=== PATIENT | female | born 1990 | race Caucasian/White ===

== ENCOUNTER 2017-09-17 14:04 | Inpatient (IN) | payer BC ==
[2017-09-17] VITALS (26 sets, daily range): BP systolic 92–139; BP diastolic 42–84; PULSE 68–106; TEMP 98.6–99.5
[~2017-09-17] VITALS: Ht 165.1 cm; Wt 70.0 kg
[2017-09-17] MEDS ORDERED: PRENATAL FORMU1 EAC3 PO (14:50)
[2017-09-17] MEDS ORDERED: ZYRTEC 10MG10 MG PO (14:50)
[2017-09-17] MEDS ORDERED: NEXIUM 20MG20 MG PO (14:52)
[2017-09-17] MEDS ORDERED: FERROUS SU325 MG/TAB PO (14:52)
[2017-09-17 15:33] LABS: BASO % 0.2 % (0.0-2.0); EOS % 0.1 % (0-4.0); GRAN # 13.9 (1.4-6.5); GRAN % 87.2 % (42.2-75.2); HEMATOCRIT 38.6 % (37.0-47.0); HEMOGLOBIN 13.2 g/dl (12.5-16.0); LYMPH # 1.2 (1.2-3.4); LYMPH % 7.6 % (20.0-51.0); MEAN CELL VOLUME 85 fl (80.0-100.0); MEAN CORPUSCULAR HEMOGLOBIN 29 pg (27.0-31.0); MEAN CORPUSCULAR HGB CONC 34 g/dl (33.0-37.0); MEAN PLATELET VOLUME 11.7 fl (7.4-10.4); MONO # 0.7 (0.1-0.6); MONO % 4.4 % (1.7-9.3); PLATELET COUNT 162 K/mm3 (130-400); RED BLOOD COUNT 4.56 M/mm3 (4.10-5.30); REDCELL DISTRIBUTION WIDTH-CV 20.8 % (11.5-14.5)
[2017-09-18] VITALS (7 sets, daily range): BP systolic 103–120; BP diastolic 50–70; PULSE 70–89; TEMP 97.7–98.9
[2017-09-19 09:09] VITALS: BP 114/69; PULSE 101
[2017-09-19] MEDS ORDERED: PERCOCET 325 MG1 TA2 PO (10:35)
[2017-09-19] MEDS ORDERED: MOTRIN 800800 MG/TAB PO (10:35)
== END 2017-09-19 16:20 | disposition home or self-care (01) | DRG 775 ==
LOC: LDRO 14:04 → LDR 15:10 → OB 23:19
PROVIDERS: Obstetrics & Gynecology
PROC: 10D07Z6 Extraction of Products of Conception, Vacuum, Via Natural or Artificial Opening (ICD-10-PCS; principal; 2017-09-17)
PROC: 0TQDXZZ Repair Urethra, External Approach (ICD-10-PCS; 2017-09-17)
PROC: 10E0XZZ Delivery of Products of Conception, External Approach (ICD-10-PCS; 2017-09-17)
DX: O60.14X1 Preterm labor third trimester with preterm delivery third trimester, fetus 1 (principal); O60.14X2 Preterm labor third trimester with preterm delivery third trimester, fetus 2; O76 Abnormality in fetal heart rate and rhythm complicating labor and delivery; O36.5932 Maternal care for other known or suspected poor fetal growth, third trimester, fetus 2; O30.043 Twin pregnancy, dichorionic/diamniotic, third trimester; Z3A.36 36 weeks gestation of pregnancy; Z37.2 Twins, both liveborn; O71.82 Other specified trauma to perineum and vulva
CPT/HCPCS: J2210; J2405; J2590; J2795; J7120

== ENCOUNTER → 2017-10-02 | Outpatient (CLI) | payer BC ==
[~2017-10-02] MED LIST: FERROUS SU325 MG/TAB PO; MOTRIN 800800 MG/TAB PO; NEXIUM 20MG20 MG PO; PERCOCET 325 MG1 TA2 PO; PRENATAL FORMU1 EAC3 PO; ZYRTEC 10MG10 MG PO
== END ==
LOC: LAC 14:59
DX: Z39.1 Encounter for care and examination of lactating mother (principal); Z71.89 Other specified counseling

== ENCOUNTER → 2017-10-18 | Outpatient (CLI) | payer BC | LOC: LAC 13:23 | DX: Z39.1 Encounter for care and examination of lactating mother (principal); Z71.89 Other specified counseling ==

== ENCOUNTER → 2017-10-25 | Outpatient (CLI) | payer BC | LOC: LAC 13:35 | DX: Z39.1 Encounter for care and examination of lactating mother (principal); Z71.89 Other specified counseling ==

== ENCOUNTER → 2017-11-01 | Outpatient (CLI) | payer BC | LOC: LAC 13:23 | DX: Z39.1 Encounter for care and examination of lactating mother (principal); Z71.89 Other specified counseling ==

== ENCOUNTER → 2017-11-08 | Outpatient (CLI) | payer BC | LOC: LAC 13:28 | DX: Z39.1 Encounter for care and examination of lactating mother (principal); Z71.89 Other specified counseling ==

== ENCOUNTER → 2017-11-13 | Outpatient (CLI) | payer BC | LOC: LAC 13:38 | DX: Z39.1 Encounter for care and examination of lactating mother (principal); Z71.89 Other specified counseling ==

== ENCOUNTER 2019-12-10 14:02 | Inpatient (IN) | payer BC ==
[2019-12-10] VITALS (25 sets, daily range): BP systolic 86–139; BP diastolic 49–66; PULSE 62–100; TEMP 97.8–97.9
[~2019-12-10] VITALS: Ht 165.1 cm; Wt 61.8 kg
[~2019-12-10 14:02] MED LIST changes: -PRILOSEC10 MG PO
[2019-12-10] MEDS ORDERED: PRILOSEC10 MG PO (14:39)
[2019-12-10 15:12] LABS: BASO % 0.1 % (0.0-2.0); EOS % 0.3 % (0-4.0); GRAN # 11.9 (1.4-6.5); GRAN % 84.6 % (42.2-75.2); HEMATOCRIT 38.9 % (37.0-47.0); HEMOGLOBIN 13.5 g/dl (12.5-16.0); LYMPH # 1.3 (1.2-3.4); LYMPH % 9.4 % (20.0-51.0); MEAN CELL VOLUME 85 fl (80.0-100.0); MEAN CORPUSCULAR HEMOGLOBIN 30 pg (27.0-31.0); MEAN CORPUSCULAR HGB CONC 35 g/dl (33.0-37.0); MEAN PLATELET VOLUME 10.1 fl (7.4-10.4); MONO # 0.7 (0.1-0.6); MONO % 5.2 % (1.7-9.3); PLATELET COUNT 241 K/mm3 (130-400); RED BLOOD COUNT 4.56 M/mm3 (4.10-5.30); REDCELL DISTRIBUTION WIDTH-CV 14.7 % (11.5-14.5)
[2019-12-11] VITALS: BP 106/66; PULSE 86; TEMP 98.1
[2019-12-11 08:00] VITALS: BP 110/68; PULSE 78; TEMP 98.1
[2019-12-11] MEDS ORDERED: MOTRIN 800800 MG/TAB PO (08:02)
[2019-12-11 20:24] VITALS: BP 112/68; PULSE 75; TEMP 97.4
[2019-12-12] MEDS ORDERED: PERCOCET 325 MG1 TA2 PO (08:10)
[2019-12-12 08:45] VITALS: BP 99/55; PULSE 68; TEMP 98.1
== END 2019-12-12 16:00 | disposition home or self-care (01) | DRG 807 ==
LOC: OB 14:02 → LDR 14:45 → OB 22:55
PROVIDERS: ADMIT Obstetrics & Gynecology
PROC: 10E0XZZ Delivery of Products of Conception, External Approach (ICD-10-PCS; principal; 2019-12-10)
PROC: 0KQM0ZZ Repair Perineum Muscle, Open Approach (ICD-10-PCS; 2019-12-10)
PROC: 10907ZC Drainage of Amniotic Fluid, Therapeutic from Products of Conception, Via Natural or Artificial Opening (ICD-10-PCS; 2019-12-10)
DX: O48.0 Post-term pregnancy (principal); Z37.0 Single live birth; O70.1 Second degree perineal laceration during delivery; Z3A.41 41 weeks gestation of pregnancy
CPT/HCPCS: J2405; J2590; J7120

== ENCOUNTER → 2019-12-10 | Outpatient (CLI) | payer BC ==
[~2019-12-10] MED LIST changes: +PRILOSEC10 MG PO
== END ==
LOC: ZCOL.LAB 08:00
DX: Z20.828 Contact with and (suspected) exposure to other viral communicable diseases (principal)